=== PATIENT | male | born 1990 | race African-American/Black ===

== ENCOUNTER → 2024-02-25 12:39 | Outpatient (REF) | payer BC, SELFPAY | LOC: RAD 12:39 | PROVIDERS: ATTENDING PHYSICIAN Internal Medicine | DX: E78.5 Hyperlipidemia, unspecified (principal) | CPT/HCPCS: 75571 ==

== ENCOUNTER 2025-06-01 18:39 | Emergency (ER) | payer BC, SELFPAY ==
[2025-06-01 18:47] VITALS: BP 160/85
[2025-06-01 20:35] VITALS: BMI 35.8
[2025-06-01 20:36] VITALS: BP 142/65
[2025-06-01] MEDS: NSS 1000 IV (20:46)
[2025-06-01] MEDS: TORADOL 15 MG IV ×2 (20:46→23:21)
[2025-06-01] MEDS: REGLAN 10 MG IV (20:47)
[2025-06-01] MEDS: BENADRYL 25 MG IV (20:47)
--- NOTE | 2025-06-01 21:06 | ED.GENMED ---
History of Present Illness
General
Chief Complaint: Headache
Source: patient
Time Seen by Provider: 06/01/25 20:09
History of Present Illness
History of Present Illness:
35-year-old male with no significant past medical history presents to the emergency department for evaluation of a headache that began late last night and persisted today despite Excedrin and Tylenol noting some mild photophobia and nausea but no
vomiting. Headache is constant, diffuse and nonradiating. Denies any history of significant headache or migraine but states she has a sister who has a migraine disorder. Patient notes that yesterday he donated blood and thinks that this may be
related. He denies any fevers, neck pain or stiffness, focal weakness or numbness or any other concerns.
Past History
Past History
ED Past Medical History: None
ED Past Surgical History: None
Social History
Tobacco: Non-smoker
Alcohol: None
Drug: None
Living: with family
Employment: Employed
Review of Systems
Review of Systems
All Other Systems: ROS reviewed and negative except as documented in HPI and ROS
Phy Exam
Physical Exam
Physical Exam:
GENERAL: Alert , in no apparent distress
HEAD: Normocephalic atraumatic
EYE: conjunctiva clear, pupils 5mm, PERRL
NECK: Supple, no significant adenopathy, no meningismus
ENT: o/p clr, mmm.
CARDIAC: Regular rate and rhythm
LUNGS: Clear breath sounds bilaterally, no acute respiratory distress, no wheezes/rales/rhonchi
NEUROLOGICAL: Alert and oriented
SKIN: Warm and dry, skin intact.
MUSCULOSKELETAL: well perfused.
PSYCH: Normal and appropriate interaction.
Scores
Heart Failure Risk
Heart Failure Risk Score: Not Applicable
Heart Score for Chest Pain Patients
STEMI patient?: Not applicable
Withdrawal Assessment of Alcohol
Withdrawal Assessment Completed?: Not applicable
Course
Orders/Labs/Results
Orders:
Orders
06/01/25 20:27
0.9% Sodium Chloride 1000 ml [Nss] 1,000 ml IV BOLUS
Diphenhydramine [Benadryl] 25 mg IV NOW STA
Ketorolac [Toradol] 15 mg IV NOW STA
Metoclopramide [Reglan] 10 mg IV NOW STA
06/01/25 20:44
Ketorolac [Toradol] 15 mg .ROUTE .STK-MED ONE
06/01/25 21:38
Basic Metabolic Panel Urgent
Complete Blood Count/With Diff Urgent
06/01/25 23:09
Ketorolac [Toradol] 15 mg IV NOW STA
Abnormal Lab Results
06/01/25
21:38
RBC 4.29 L 10^6/uL
(4.70-6.10)
Hgb 12.9 L g/dL
(13.0-18.0)
Hct 36.6 L %
(39.0-52.0)
Absolute Lymphs (auto) 1.1 L 10^3/uL
(1.2-3.4)
Potassium 3.4 L mmol/L
(3.5-5.1)
Glucose 151 H mg/dl
(70-99)
06/01/25 21:38
06/01/25 21:38
Vital Signs
Initial and Last Documented VS:
Initial Vital Signs
Temp Pulse Resp Pulse Ox
98.9 F 100 18 97
06/01/25 18:46 06/01/25 18:46 06/01/25 18:46 06/01/25 18:46
Last Documented Vital Signs
Temp Pulse Resp BP Pulse Ox
98.9 F 88 18 138/78 98
06/01/25 18:46 06/01/25 22:00 06/01/25 22:00 06/01/25 22:00 06/01/25 22:00
MDM/Problems Addressed
Differential Diagnosis Includes:
Tension Headache
Migraine Headache
Anemia
ICH
Seizure
Meningitis
Encephalitis
Viral Syndrome
MDM/Problems Addressed:
35-year-old male presenting to the ER for evaluation of headache x 1 day. Minimal relief with Excedrin and Tylenol, last dose around noon today. Exam without any focality. Will check labs and treat with migraine cocktail. Reassessment following.
*Pulse Oximetry
SaO2: 97
Oxygen Mode of Delivery: Room air
Patient hypoxic: no
*Critical Care Note
Total Time (30-74mins, 75-104mins- exclusive of procedures): Not Applicable
Comment
Comment:
On reevaluation patient with moderately improved symptoms, headache remains but nausea is fully resolved. Patient requesting additional headache medication, additional 15 mg of Toradol ordered.
ED Attending Note
-
Portions of this chart may have been created with voice recognition software.� Occasional wrong word or��sound alike� substitutions may have occurred due to the inherent limitations of voice recognition software.
Discharge Plan
Departure
Patient Disposition: Home (Routine Discharge)
Date of Disposition: 06/02/25
Time of Disposition: 00:41
Patient with high blood pressure during this ER visit?: Yes
Discharge Problem:
Headache
Instructions: Headache, Adult (DC)
Referrals:
Nissa Crystal MD [Family Provider, Internal Medicine]
Interventions
Interventions:
*Risk Screen - Suicide Last Done: 06/01/25 18:46
*General Assessment Last Done: 06/01/25 20:30
*Neglect/Abuse Screening Last Done: 06/01/25 20:30
*ED- Fall Risk Assessment Last Done: 06/01/25 20:30
*ED COVID-19 Vaccine History Last Done: 06/01/25 20:30
*ED Influenza Vaccine History Last Done: 06/01/25 20:30
ED- Neurological Assessment Last Done: 06/01/25 20:30
Discharge Date and Time
Print Language: QATARI
[2025-06-01 21:45] LABS: Hematocrit 36.6 % (39.0-52.0); Hemoglobin 12.9 g/dL (13.0-18.0); Mean Corp Hgb Conc. 35.2 g/dL (33.0-37.0); Mean Corpuscular Volume 85.3 fL (80.0-94.0); Nucleated Red Blood Cells % 0 % (-); Platelet Count 216 10^3/uL (130-400); Red Cell Dist. Width 12.6 % (11.5-14.5)
[2025-06-01 22:00] VITALS: BP 138/78
[2025-06-01 22:00] LABS: Blood Urea Nitrogen 10 mg/dl (9-20); Calcium 8.6 mg/dl (8.4-10.2); Carbon Dioxide 27 mmol/L (22-30); Chloride 103 mmol/L (98-107); Estimated Creatinine Clearance > 125 ml/min; Glucose 151 mg/dl (70-99); Potassium 3.4 mmol/L (3.5-5.1); Sodium 135 mmol/L (135-145); eGFR > 60.00
[2025-06-02] VITALS: BP 142/78
== END 2025-06-02 00:50 | disposition home or self-care (01) ==
LOC: EMR 18:39
PROVIDERS: Physician Assistant Medical; EMERGENCY PHYSICIAN Student in an Organized Health Care Education/Training Program; FAMILY PHYSICIAN Internal Medicine
DX: R51.9 Headache, unspecified (principal)
CPT/HCPCS: 99283; 96374; 96375; 96376; 96361; 80048; 85025

== ENCOUNTER 2025-06-02 12:18 | Emergency (ER) | payer BC, SELFPAY ==
[2025-06-02 12:20] VITALS: BP 144/87
--- NOTE | 2025-06-02 13:13 | ED.GENMED ---
History of Present Illness
General
Chief Complaint: Headache
Source: patient
Exam Limitations: none
Time Seen by Provider: 06/02/25 13:00
Nursing documentation reviewed up to this point in time: agreed with
History of Present Illness
History of Present Illness:
35-year-old male with no reported chronic medical issues presents to the ER for evaluation of headache. Patient reports that he donated blood on and evening had mild frontal pressure headache. Wednesday he says headache was worse
describes more of a pounding frontal headache with occasional sharper stabbing pain in the frontal region. He ultimately went to the ER and was seen yesterday evening�he was treated with migraine cocktail and reports that his symptoms improved when
he went home. He says he woke up this morning and once again had headache; he took Excedrin and symptoms transiently improved but once again returned this afternoon which prompted him to come to the ER once again. Aside from headache he denies any
other symptoms�he says that he did have some mild nausea yesterday that seems to have resolved. No vomiting. Denies any neck pain or stiffness. There was some photosensitivity reported yesterday he says this seems to have improved. Denies any
pain in the eyes or vision changes otherwise. No focal weakness or numbness in extremities. He has not had fever or chills or URI symptoms. He says that headaches are very unusual for him and he has not had similar symptoms in the past. He
denies any trauma.
Past History
Past History
ED Past Medical History: None
ED Past Surgical History: None
Social History
Tobacco: Non-smoker
Alcohol: None
Drug: None
Living: with family
Employment: Employed
Review of Systems
Review of Systems
All Other Systems: ROS reviewed and negative except as documented in HPI and ROS
Constitutional: Denies fever or chills
EENT: Denies sore throat or runny nose
Respiratory: Denies cough
Cardiac: Denies chest pain
ABD/GI: Denies nausea or vomiting
Musculoskeletal: Denies neck pain or back pain
Neurological: Reports headache; Denies dizzy, weakness or numbness
Phy Exam
Physical Exam
Physical Exam:
General: Awake, alert, oriented x3; no acute distress
Head: Normocephalic, atraumatic
Eyes: Conjunctiva normal, EOMI, pupils equal round and reactive to light bilaterally
Throat: Airway intact, handling secretions
Neck: Trachea midline, supple without meningismus, full range of motion without pain
Lungs: Clear to auscultation bilaterally, no wheezing, rales, rhonchi
Heart: Regular rate and rhythm, no murmurs, gallops, or rubs
Neuro: Cranial nerves intact, speech fluid without dysarthria or aphasia, no limb ataxia, motor and sensory intact in all extremities
Skin: Warm and dry
Extremities: No edema in extremities, warm and well-perfused
Scores
Heart Failure Risk
Heart Failure Risk Score: Not Applicable
Heart Score for Chest Pain Patients
STEMI patient?: Not applicable
Withdrawal Assessment of Alcohol
Withdrawal Assessment Completed?: Not applicable
Course
Orders/Labs/Results
Orders:
Orders
06/02/25 13:01
CT Head W/o Iv Contrast Urgent
Comment:
Reason For Exam: headache
06/02/25 13:21
0.9% Sodium Chloride 1000 ml [Nss] 1,000 ml IV BOLUS
Ketorolac [Toradol] 15 mg IV NOW STA
06/02/25 13:40
COVID-19 Antigen Urgent
Source: Nasal Swab
CRP [C-Reactive Protein] Urgent
Complete Blood Count/With Diff Urgent
Comprehensive Metabolic Panel Urgent
ESR [Erythrocyte Sed Rate] Urgent
Influenza A+B Rapid Molecular Urgent
TIM Source: Nasal Swab
Specimen Description:
Abnormal Lab Results
06/02/25
13:40
WBC 4.5 L 10^3/uL
(4.8-10.8)
RBC 4.66 L 10^6/uL
(4.70-6.10)
Neutrophils % 37.2 L %
(42.2-75.2)
Monocytes % 11.9 H %
(1.7-9.3)
C-Reactive Protein 18.60 H mg/L
(0.0-10.00)
06/02/25 13:40
06/02/25 13:40
Vital Signs
Initial and Last Documented VS:
Initial Vital Signs
Temp Pulse Resp BP Pulse Ox
36.9 C 93 18 144/87 98
06/02/25 12:20 06/02/25 12:20 06/02/25 12:20 06/02/25 12:20 06/02/25 12:20
Last Documented Vital Signs
Temp Pulse Resp BP Pulse Ox
36.9 C 93 18 144/87 98
06/02/25 12:20 06/02/25 12:20 06/02/25 12:20 06/02/25 12:20 06/02/25 13:13
MDM/Problems Addressed
Differential Diagnosis Includes:
Symptomatic anemia, dehydration, viral syndrome, tension headache, migraine headache, cluster headache, brain mass/brain bleed considered less likely
MDM/Problems Addressed:
35-year-old male returns to the ER for persistent headache�it sounds like symptoms have generally improved but have not resolved (reported photosensitivity and nausea seems to have improved but headache persists); he says headaches are very unusual
for him. He generally looks well, vital signs here are within acceptable range. Physical exam is as noted. Had basic labs and migraine cocktail yesterday but no imaging. Given consistent headache with no history of headaches and now second visit
to the ER we will plan to check CT head although low suspicion for brain mass or bleed based on full clinical picture. Will check repeat labs specifically hemoglobin. Will swab for COVID and flu. Continue to treat symptomatically. He is a very
fit young male and he was mildly anemic yesterday with a hemoglobin of 12.9. He says symptoms started after donating blood on �I wonder if he may be symptomatic from his mild anemia after transfusion in which case he likely just needs
continued supportive care.
CT head no acute abnormalities. Initial labs reviewed and CBC shows improving hemoglobin 13.8. Marginal leukopenia. Platelet count acceptable. Chemistry normal, viral swabs negative. Patient feeling better after Toradol and fluids. Stable for
discharge. I do suspect his symptoms are some mild anemia symptoms after giving blood�he says that at his last primary appointment his hemoglobin was over 15 and yesterday was 12.9. His hemoglobin has improved today to 13.8 and his symptoms have
improved although not completely resolved. I suspect they will continue to improve over the next few days, advised him to continue to drink plenty of fluids and he can manage with OTC medications. He feels comfortable with this plan. Follow-up
with his primary doctor. Spoke about return precautions and all questions answered.
*Radiology
Radiology exam reviewed: radiology read reviewed
*Pulse Oximetry
SaO2: 98
Oxygen Mode of Delivery: Room air
Patient hypoxic: no (98%)
*Critical Care Note
Total Time (30-74mins, 75-104mins- exclusive of procedures): Not Applicable
Data Reviewed
Review of Other/Old Records Reveals: Labs
Source: patient and records
ED Attending Note
-
Portions of this chart may have been created with voice recognition software.� Occasional wrong word or��sound alike� substitutions may have occurred due to the inherent limitations of voice recognition software.
Discharge Plan
Departure
Patient Disposition: Home (Routine Discharge)
Date of Disposition: 06/02/25
Time of Disposition: 14:30
Patient with high blood pressure during this ER visit?: No
Discharge Problem:
Headache
Instructions: Headache, Adult (DC)
Referrals:
Nissa Crystal MD [Family Provider, Internal Medicine] - Follow up in 1 week
Activity Restrictions/Additional Instructions:
Thank you for visiting the Emergency Department at [facility].
1. Please schedule a follow up appointment as directed. Call first thing tomorrow morning to make an appointment.
2. If indicated, please take your medications as instructed and indicated on discharge paperwork.
3. If any of your symptoms do not improve, or persist, or become more severe within 6-12 hours, please return to the emergency department for further care.
4. Please return to the emergency department if you develop a headache, neck pain/stiffness, fever greater than 100.4F, chest pain, shortness of breath, persistent nausea, vomiting, slurred speech, difficulty walking, numbness/tingling, weakness,
signs of infection or any other symptoms that are worrisome to you.
Please call [phone] if you have any questions.
Interventions
Interventions:
*Risk Screen - Suicide Last Done: 06/02/25 12:20
*General Assessment Last Done: 06/02/25 12:20
*Neglect/Abuse Screening Last Done: 06/02/25 12:20
Discharge Date and Time
Print Language: NEPALI
[2025-06-02] MEDS: TORADOL 15 MG IV (13:39)
[2025-06-02] MEDS: NSS 1000 IV (13:40)
[2025-06-02 13:57] LABS: Hematocrit 40.1 % (39.0-52.0); Hemoglobin 13.8 g/dL (13.0-18.0); Mean Corp Hgb Conc. 34.4 g/dL (33.0-37.0); Mean Corpuscular Volume 86.1 fL (80.0-94.0); Nucleated Red Blood Cells % 0 % (-); Platelet Count 243 10^3/uL (130-400); Red Cell Dist. Width 13.0 % (11.5-14.5)
[2025-06-02 14:16] LABS: COVID-19 Antigen Negative (Negative)
[2025-06-02 14:25] LABS: ALT (SGPT) 26 U/L (0-50); AST (SGOT) 28 U/L (17-59); Albumin 4.2 g/dl (3.5-5.0); Alkaline Phosphatase 60 U/L (38-126); Blood Urea Nitrogen 11 mg/dl (9-20); Calcium 9.2 mg/dl (8.4-10.2); Carbon Dioxide 30 mmol/L (22-30); Chloride 106 mmol/L (98-107); Glucose 98 mg/dl (70-99); Potassium 4.0 mmol/L (3.5-5.1); Sodium 139 mmol/L (135-145); Total Protein 7.4 g/dl (6.3-8.2); eGFR > 60.00
[2025-06-02 14:28] LABS: C-Reactive Protein 18.60 mg/L (0.0-10.00)
[2025-06-02 15:06] VITALS: BP 138/82
== END 2025-06-02 15:09 | disposition home or self-care (01) ==
LOC: EMR 12:18
PROVIDERS: EMERGENCY PHYSICIAN Emergency Medicine; FAMILY PHYSICIAN Internal Medicine
DX: R51.9 Headache, unspecified (principal); D64.9 Anemia, unspecified; D72.819 Decreased white blood cell count, unspecified
CPT/HCPCS: 99284; 96374; 96361; 70450; 80053; 85025; 85652; 86140; 87502; 87811